=== PATIENT | male | born 1960 | race Caucasian/White ===

== ENCOUNTER 2017-07-08 21:53 | Emergency (ER) | payer OTHER ==
[~2017-07-08] VITALS: Ht 182.9 cm; Wt 108.1 kg
[~2017-07-08 21:53] MED LIST: IBUP-232 PO; OSEL75 PO; PSEU30TA PO; Z.0.NO CURRENT MEDS
[2017-07-08 21:57] VITALS: BP 140/83; PULSE 91; RESP 16; TEMP 99; O2SAT 95
--- NOTE | 2017-07-08 22:21 | PD ---
HPI Chief Complaint: Foreign Body Time Seen by Provider: 22:02 Travel History International Travel<30 days: No Contact w/Intl Traveler<30days: No Traveled to known affect area: No History of Present Illness HPI 56-year-old male here for evaluation of possible throat foreign body. The patient reports that for the last 2 days he has felt as though something is in his throat. He points to his right neck. He states that today the area seemed to have migrated a little more distally. He points to his right proximal/ anterior neck or a first felt the foreign body, now points to his right distal/ anterior neck. He denies difficulty with swallowing or breathing. He is unsure what the foreign body may be. PFSH Past Medical History Heart Rhythm Problems: No Cardiac Catheterization: No Cardiovascular Problems: No High Cholesterol: No Congestive Heart Failure: No Diabetes: Yes Patient Takes Glucophage: No Diminished Hearing: No Hypertension: No Immunizations Current: Yes Myocardial Infarction: No Influenza Vaccination: Yes ?: Not Past Surgical History Coronary Artery Bypass Graft: No Social History Alcohol Use: No Tobacco Use: No Substance Use: No Allergies-Medications (Allergen,Severity, Reaction): Coded Allergies: No Known Allergies (Verified , 07/08/17) Reported Meds & Prescriptions Reported Meds & Active Scripts Active No Active Prescriptions or Reported Medications Review of Systems Except as stated in HPI: all other systems reviewed are Neg Physical Exam Narrative GENERAL: Well-developed, well-nourished, awake, alert, no apparent distress. SKIN: Focused skin assessment warm/dry. HEAD: Atraumatic. Normocephalic. EYES: Pupils equal and round. No scleral icterus. No injection or drainage. ENT: No nasal bleeding or discharge. Mucous membranes pink and moist. Normal pharynx. No drooling or stridor. NECK: Trachea midline. No JVD. No masses or lymphadenopathy. CARDIOVASCULAR: Regular rate and rhythm. RESPIRATORY: No accessory muscle use. Clear to auscultation. Breath sounds equal bilaterally. NEUROLOGICAL: Awake and alert. No obvious cranial nerve deficits. Motor grossly within normal limits. Normal speech. PSYCHIATRIC: Appropriate mood and affect; insight and judgment normal. Data Data Last Documented VS Vital Signs Date Time Temp Pulse Resp B/P (MAP) Pulse Ox O2 Delivery O2 Flow Rate FiO2 07/08/17 22:05 90 16 07/08/17 21:57 99.0 140/83 (102) [address] Soft Tiss Neck W/O Iv Cont (07/08/17 ) Ibuprofen (Motrin) (07/08/17 23:15) MDM Medical Decision Making Medical Screen Exam Complete: Yes Emergency Medical Condition: Yes Differential Diagnosis Neck foreign-body/mass/lymphadenopathy/foreign-body sensation Narrative Course Vital signs show heart rate 91, blood pressure 140/83, pulse ox 95% on room air , oral temp of 99F. CT soft tissue neck: No foreign body is identified. Patient was made aware of CT findings, and was provided a copy of the CT results. His airway is patent and protected. There is no drooling or stridor. He is able to tolerate his secretions. At this point he is stable for discharge home with further workup as an outpatient with his primary care physician/ENT specialist. He will be given the name of the ENT specialist condominium manager with whom to follow-up with this week. He was informed on when to return to the emergency department. He verbalizes understanding and agreement with plan. Diagnosis Primary Impression: Foreign body sensation in throat Referrals: Yared Sanchez MD 3 days ENT Primary Care Physician 3 days Additional Instructions: Follow-up with your primary care physician this week. Follow-up with ENT Dr. Sanchez or an ENT specialist of your choice this week. Return to the emergency department for worsening symptoms or any other concerns as discussed. Scripts No Active Prescriptions or Reported Meds Disposition: 01 DISCHARGE HOME Condition: Stable Nickolas Chowdary MD Jul 08, 2017 22:21
--- NOTE | 2017-07-08 22:44 | RADRPT ---
EXAM DATE/TIME: 07/08/2017 22:16 [facility] COMPARISON: No previous studies available for comparison. INDICATIONS : Evaluate for foreign body. RADIATION DOSE: 13.70 CTDIvol (mGy) MEDICAL HISTORY : Diabetes mellitus type 2. SURGICAL HISTORY : None. ENCOUNTER: Initial ACUITY: 4 - 6 days PAIN SCORE: 5/10 LOCATION: Right anterior lower neck. TECHNIQUE: Volumetric scanning of the neck was performed. Using automated exposure control and adjustment of th e mA and/or kV according to patient size, radiation dose was kept as low as reasonably achievable to obtain optimal diagnostic quality images. DICOM format image data is available electronically for re view and comparison. FINDINGS: NASOPHARYNX: The nasopharyngeal airway has a normal configuration. No mucosal thickening or mass is seen. OROPHARYNX: The intrinsic muscles of the tongue are symmetric. The prevertebral soft tissues are not thickened. LARYNX: The supraglottic, glottic, and infraglottic structures demonstrate no acute finding. SALIVARY GLANDS: The parotid and submandibular glands demonstrate no acute finding. LYMPH NODES: No enlarged or necrotic-appearing nodes. THYROID: Homogeneous enhancement without evidence of nodule. BONES: No acute abnormality. OTHER: Marker was placed on the inferior right neck anteriorly at the area of concern. The marker is superfi cial to the medial aspect of the right sternocleidomastoid muscle and superficial to the platysma mus jhon. No foreign body is visualized. CONCLUSION: No foreign body is identified. Pritesh Castro MD on July 08, 2017 at 22:40 Board Certified Radiologist. This report was verified electronically.
[2017-07-08 23:10] VITALS: BP 148/86; PULSE 88; RESP 16; O2SAT 97
[2017-07-08] MEDS ORDERED: IBUPROFEN 600 MG TAB PO ONE (23:15)
== END 2017-07-08 23:31 | disposition home or self-care (01) ==
LOC: PHED 21:53
DX: R09.89 Other specified symptoms and signs involving the circulatory and respiratory systems (principal); E11.9 Type 2 diabetes mellitus without complications
CPT/HCPCS: 70490